=== PATIENT | female | born 1970 | race Caucasian/White ===

== ENCOUNTER → 2016-10-19 | Outpatient (CLI) | payer BC | LOC: MC.RAD 10:00 | DX: Z12.31 Encounter for screening mammogram for malignant neoplasm of breast (principal) ==

== ENCOUNTER 2018-02-06 01:18 | Observation (INO) | payer BC ==
[~2018-02-06] VITALS: Ht 167.7 cm; Wt 74.7 kg
[2018-02-06 01:36] LABS: BASO # 0.1 (0.0-0.2); BASO % 0.9 % (0.0-2.0); EOS # 0.6 (0.0-0.7); EOS % 6.2 % (0-4.0); GRAN % 39.5 % (42.2-75.2); HEMATOCRIT 40.3 % (37.0-47.0); HEMOGLOBIN 13.7 g/dl (12.5-16.0); LYMPH # 4.5 (1.2-3.4); LYMPH % 44.7 % (20.0-51.0); MEAN CELL VOLUME 89 fl (80.0-100.0); MEAN CORPUSCULAR HEMOGLOBIN 30 pg (27.0-31.0); MEAN CORPUSCULAR HGB CONC 34 g/dl (33.0-37.0); MEAN PLATELET VOLUME 10.7 fl (7.4-10.4); MONO # 0.9 (0.1-0.6); MONO % 8.4 % (1.7-9.3); PLATELET COUNT 319 K/mm3 (130-400); RED BLOOD COUNT 4.55 M/mm3 (4.10-5.30); REDCELL DISTRIBUTION WIDTH-CV 12.3 % (11.5-14.5)
[2018-02-06 01:47] LABS: ALANINE AMINOTRANSFERASE 27 U/L (9-52); ALBUMIN 4.2 gm/dL (3.5-5.0); ALKALINE PHOSPHATASE 77 U/L (50-136); ANION GAP 10 mmol/L (7-16); AST,SGOT 28 U/L (15-37); BILIRUBIN,TOTAL 0.4 mg/dL (0.0-1.0); BLOOD UREA NITROGEN 15 mg/dL (7-17); CALCIUM 9.2 mg/dL (8.4-10.2); CARBON DIOXIDE 28 mmol/L (22-30); CHLORIDE 101 mmol/L (98-107); CREATININE, serum 0.87 mg/dL (0.52-1.25); GLUCOSE 86 mg/dL (74-106); LIPASE 134 U/L (23-300); POTASSIUM 3.5 mmol/L (3.4-5.0); SODIUM 139 mmol/L (137-145); TOTAL PROTEIN 7.6 gm/dL (6.4-8.2)
[2018-02-06 02:00] LABS: TROPONIN-I < 0.012 ng/mL (0.000-0.034)
[2018-02-06 08:48] VITALS: BP 129/81; PULSE 61; TEMP 98.4
[2018-02-06 12:32] VITALS: BP 113/67; PULSE 75; TEMP 98.9
[2018-02-06 15:54] VITALS: BP 135/82; PULSE 62; TEMP 98.2
[2018-02-06 21:00] VITALS: BP 120/75; PULSE 70; TEMP 98.7
[2018-02-07 05:40] VITALS: BP 112/71; PULSE 68; TEMP 98
[2018-02-07 06:23] LABS: BASO # 0.1 (0.0-0.2); BASO % 0.8 % (0.0-2.0); EOS # 0.4 (0.0-0.7); EOS % 6.1 % (0-4.0); GRAN # 3.3 (1.4-6.5); GRAN % 46.3 % (42.2-75.2); HEMATOCRIT 37.2 % (37.0-47.0); HEMOGLOBIN 12.4 g/dl (12.5-16.0); LYMPH # 2.7 (1.2-3.4); LYMPH % 38.6 % (20.0-51.0); MEAN CELL VOLUME 90 fl (80.0-100.0); MEAN CORPUSCULAR HEMOGLOBIN 30 pg (27.0-31.0); MEAN CORPUSCULAR HGB CONC 33 g/dl (33.0-37.0); MEAN PLATELET VOLUME 10.8 fl (7.4-10.4); MONO # 0.6 (0.1-0.6); MONO % 7.9 % (1.7-9.3); PLATELET COUNT 283 K/mm3 (130-400); RED BLOOD COUNT 4.14 M/mm3 (4.10-5.30); REDCELL DISTRIBUTION WIDTH-CV 12.3 % (11.5-14.5)
[2018-02-07 06:32] LABS: CALCIUM 8.6 mg/dL (8.4-10.2); CREATININE, serum 0.77 mg/dL (0.52-1.25); POTASSIUM 3.9 mmol/L (3.4-5.0)
[2018-02-07 07:15] VITALS: BP 112/71; PULSE 68
[2018-02-07 10:54] VITALS: BP 135/83; PULSE 71; TEMP 97.8
== END 2018-02-07 14:50 | disposition home or self-care (01) ==
LOC: COL.ER 01:18 → MEDICAL 06:25 → COL.ER 06:25 → MEDICAL 02-07 14:50
PROVIDERS: Emergency Medicine; Internal Medicine
DX: R07.9 Chest pain, unspecified (principal); R94.31 Abnormal electrocardiogram [ECG] [EKG]; Z88.5 Allergy status to narcotic agent; Z82.49 Family history of ischemic heart disease and other diseases of the circulatory system
CPT/HCPCS: 99239; A9502; G0378; J7030

== ENCOUNTER → 2018-04-29 | Outpatient (CLI) | payer BC | LOC: MC.RAD 10:58 | DX: Z12.31 Encounter for screening mammogram for malignant neoplasm of breast (principal); Z98.890 Other specified postprocedural states ==

== ENCOUNTER 2019-07-16 07:51 | Emergency (ER) | payer BC ==
[~2019-07-16] VITALS: Ht 167.6 cm; Wt 83.5 kg
[2019-07-16] MEDS ORDERED: ALBUTEROL0.83 MG/ML IH (07:55)
[2019-07-16] MEDS ORDERED: PREDNISONE10 MG PO (07:57)
[2019-07-16] MEDS ORDERED: RT ADVAIR 128 DISKUS IH (07:58)
[2019-07-16] MEDS ORDERED: ZYRTEC ALLERGY10 MG PO (07:59)
[2019-07-16] MEDS ORDERED: FLONASE NASAL S16 GM (07:59)
[2019-07-16 08:00] VITALS: TEMP 98.6
[2019-07-16] MEDS ORDERED: PROVENTIL0.09 MG/A1 IH (08:00)
[2019-07-16 09:13] LABS: BASO % 0.3 % (0.0-2.0); EOS % 0.2 % (0-4.0); GRAN # 9.2 (1.4-6.5); GRAN % 70.2 % (42.2-75.2); HEMATOCRIT 39.1 % (37.0-47.0); HEMOGLOBIN 12.9 g/dl (12.5-16.0); LYMPH # 2.8 (1.2-3.4); LYMPH % 21.6 % (20.0-51.0); MEAN CELL VOLUME 90 fl (80.0-100.0); MEAN CORPUSCULAR HEMOGLOBIN 30 pg (27.0-31.0); MEAN CORPUSCULAR HGB CONC 33 g/dl (33.0-37.0); MEAN PLATELET VOLUME 10.8 fl (7.4-10.4); MONO % 7.4 % (1.7-9.3); PLATELET COUNT 303 K/mm3 (130-400); RED BLOOD COUNT 4.35 M/mm3 (4.10-5.30)
[2019-07-16] MEDS ORDERED: ZITHROMAX Z PA250 MG PO ×2 (09:17)
[2019-07-16 09:35] LABS: TROPONIN-I < 0.012 ng/mL (0.000-0.035)
[2019-07-16 10:05] LABS: ALBUMIN 4.1 gm/dL (3.5-5.0); BILIRUBIN,TOTAL 0.6 mg/dL (0.0-1.0); CALCIUM 9.3 mg/dL (8.4-10.2); CREATININE, serum 0.71 (0.52-1.25); POTASSIUM 3.9 mmol/L (3.4-5.0); TOTAL PROTEIN 7.5 gm/dL (6.4-8.2)
[2019-07-16] MEDS ORDERED: TAMIFLU 75MG75 MG PO (10:07)
[2019-07-16 11:05] VITALS: BP 141/96; PULSE 82
== END 2019-07-16 11:05 | disposition home or self-care (01) ==
LOC: COL.ER 07:51
PROVIDERS: Emergency Medicine
DX: J11.1 Influenza due to unidentified influenza virus with other respiratory manifestations (principal); J45.901 Unspecified asthma with (acute) exacerbation; Z79.51 Long term (current) use of inhaled steroids
CPT/HCPCS: J2930; J3475